=== PATIENT | female | born 1970 | race Caucasian/White ===

== ENCOUNTER → 2016-11-26 | Outpatient (CLI) | payer OTHER ==
[2016-11-26 13:41] LABS: Basophils % (A) 0 %; CH 29.8; CHCM 33.6; Eosinophils # (A) 0.1 k/uL (0-0.7); Eosinophils % (A) 1 %; HCT 39.6 % (34.0-46.0); HDW 2.94; HGB 12.9 gm/dL (11.4-16.0); Luc % (Auto) 1; Lymphocytes # (A) 1.8 k/uL (1.0-4.8); Lymphocytes % (A) 22 %; MCHC 32.6 g/dL (31.0-37.0); MCV 88.9 fL (80.0-100.0); Mean Platelet Volume 7.5; Monocytes # (A) 0.4 k/uL (0-1.0); Monocytes % (A) 5 %; Neutrophils # (A) 5.8 k/uL (1.3-7.7); Neutrophils % (A) 70 %; RBC 4.45 m/uL (3.80-5.40); RDW 13.2 % (11.5-15.5); WBC 8.2 k/uL (3.8-10.6); WBC (Perox) 8.44
[2016-11-29 04:48] LABS: Immunoglobulin G 904 mg/dL (700 - 1600)
[2016-12-04 15:27] LABS: Mis test requested (Blood) PNE23
== END | disposition home or self-care (01) ==
LOC: LABWHC1 12:40
PROVIDERS: ATTEND Allergy & Immunology
DX: J32.9 Chronic sinusitis, unspecified (principal)
CPT/HCPCS: 36415; 82784; 82785; 85025; 86317

== ENCOUNTER → 2017-12-12 | Outpatient (CLI) | payer BC ==
--- NOTE | 2017-12-16 09:45 | MM ---
Reason for exam: screening (asymptomatic). Last mammogram was performed 1 year and 6 months ago. History: Family history of breast cancer in paternal grandmother and breast cancer in paternal aunt. Benign US breast aspiration ea add LT of the left breast, June 13, 2016. Benign US breast aspiration single LT of the left breast, June 13, 2016. Physical Findings: A clinical breast exam by your physician is recommended on an annual basis and results should be correlated with mammographic findings. MG 3D Screening Mammo W/Cad Bilateral CC and MLO view(s) were taken. Prior study comparison: May 30, 2016, bilateral MG 3d screening mammo w/cad. April 23, 2013, bilateral digital screening mammo w/CAD. The breast tissue is extremely dense which could obscure a lesion on mammography. Finding: There is a developing equal, indistinct lobulated mass located 7 cm from the nipple in the left breast. New finding since May 30, 2016 and April 23, 2013. ASSESSMENT: Incomplete: need additional imaging evaluation, BI-RAD 0 RECOMMENDATION: Ultrasound of the left breast. [facility] will attempt to contact patient to return for ultrasound.
== END | disposition home or self-care (01) ==
LOC: RADMAMWWP 15:44
PROVIDERS: ATTEND Pediatrics
DX: Z12.31 Encounter for screening mammogram for malignant neoplasm of breast (principal); R92.8 Other abnormal and inconclusive findings on diagnostic imaging of breast
CPT/HCPCS: 77063; 77067

== ENCOUNTER → 2017-12-13 | Outpatient (CLI) | payer BC ==
[2017-12-13 10:03] LABS: Basophils % (A) 1 %; Eosinophils # (A) 0.4 k/uL (0-0.7); Eosinophils % (A) 6 %; HCT 40.8 % (34.0-46.0); HGB 12.6 gm/dL (11.4-16.0); Lymphocytes % (A) 34 %; MCHC 30.9 g/dL (31.0-37.0); MCV 90.5 fL (80.0-100.0); Mean Platelet Volume 6.5; Monocytes # (A) 0.4 k/uL (0-1.0); Monocytes % (A) 6 %; Neutrophils # (A) 3.1 k/uL (1.3-7.7); Neutrophils % (A) 52 %; Platelet Count 348 k/uL (150-450); RBC 4.51 m/uL (3.80-5.40); RDW 14.2 % (11.5-15.5)
[2017-12-13 10:33] LABS: ALT 23 U/L (9-52); AST 17 U/L (14-36); Albumin 3.9 g/dL (3.5-5.0); Alkaline Phosphatase 77 U/L (38-126); Anion Gap 9 mmol/L; Blood Urea Nitrogen 12 mg/dL (7-17); Calcium 9.5 mg/dL (8.4-10.2); Carbon Dioxide 28 mmol/L (22-30); Chloride 103 mmol/L (98-107); Cholesterol 174 mg/dL (<200); Glucose 99 mg/dL (74-99); HDL Cholesterol 72 mg/dL (40-60); LDL Cholesterol,Calculated 90 mg/dL (0-99); Potassium 4.6 mmol/L (3.5-5.1); Sodium 140 mmol/L (137-145); Total Bilirubin 0.4 mg/dL (0.2-1.3); Total Protein 6.5 g/dL (6.3-8.2); Triglycerides 59 mg/dL (<150)
== END | disposition home or self-care (01) ==
LOC: LABWHC1 09:32
PROVIDERS: ATTEND Pediatrics
DX: Z00.00 Encounter for general adult medical examination without abnormal findings (principal); Z13.220 Encounter for screening for lipoid disorders
CPT/HCPCS: 36415; 80053; 80061; 85025

== ENCOUNTER → 2017-12-30 | Outpatient (CLI) | payer BC ==
--- NOTE | 2017-12-30 10:59 | USB ---
Reason for exam: additional evaluation requested from abnormal screening. History: Family history of breast cancer in paternal grandmother and breast cancer in paternal aunt. Benign US breast aspiration ea add LT of the left breast, June 13, 2016. Benign US breast aspiration single LT of the left breast, June 13, 2016. Physical Findings: Nurse did not find any significant physical abnormalities on exam. US Breast Workup LT Left breast ultrasound includes all four quadrants, the retroareolar region and axilla. Finding demonstrates a 0.6 x 0.4 x 0.6cm lobular, cystic cluster at 2 o'clock stable from 06/08/16, a 0.9 x 0.5 x 0.7cm oval, cystic lesion at 3 o'clock stable from 06/08/16, a 1.5 x 0.7 x 1.2cm oval, cystic lesion at 4 o'clock, a 0.8 x 0.5 x 0.8cm lobular, cystic lesion at 5 o'clock and a 0.4 x 0.3 x 0.4cm oval lesion too small to characterize4 at 3 o'clock. Overall fibrocystic change. These results were verbally communicated with the patient and result sheet given to the patient on 12/30/17. ASSESSMENT: Benign, BI-RAD 2 RECOMMENDATION: Return to routine screening mammogram schedule for both breasts.
== END | disposition home or self-care (01) ==
LOC: RADUSWWP 09:38
PROVIDERS: ATTEND Pediatrics
DX: R92.8 Other abnormal and inconclusive findings on diagnostic imaging of breast (principal)

== ENCOUNTER → 2018-01-27 | Outpatient (CLI) | payer BC ==
[2018-01-27 11:48] LABS: Basophils % (A) 0 %; Eosinophils # (A) 0.2 k/uL (0-0.7); Eosinophils % (A) 3 %; HGB 12.8 gm/dL (11.4-16.0); Lymphocytes # (A) 2.2 k/uL (1.0-4.8); Lymphocytes % (A) 37 %; MCH 28.8 pg (25.0-35.0); MCHC 33.6 g/dL (31.0-37.0); MCV 85.7 fL (80.0-100.0); Mean Platelet Volume 6.4; Monocytes # (A) 0.3 k/uL (0-1.0); Monocytes % (A) 5 %; Neutrophils # (A) 3.1 k/uL (1.3-7.7); Neutrophils % (A) 52 %; Platelet Count 397 k/uL (150-450); RBC 4.43 m/uL (3.80-5.40); RDW 13.5 % (11.5-15.5)
[2018-01-27 16:23] LABS: Immunoglobulin E 10.4 IU/mL (0.00-114.00)
== END | disposition home or self-care (01) ==
LOC: LABWHC1 11:26
PROVIDERS: ATTEND Allergy & Immunology
DX: J32.9 Chronic sinusitis, unspecified (principal)
CPT/HCPCS: 36415; 82784; 82785; 85025

== ENCOUNTER → 2019-10-23 | Outpatient (CLI) | payer BC ==
[2019-10-23 09:07] LABS: Basophils % (A) 0 %; Eosinophils # (A) 0.3 k/uL (0-0.7); Eosinophils % (A) 4 %; HCT 39.6 % (34.0-46.0); HGB 13.2 gm/dL (11.4-16.0); Lymphocytes # (A) 2.4 k/uL (1.0-4.8); Lymphocytes % (A) 41 %; MCH 29.7 pg (25.0-35.0); MCHC 33.2 g/dL (31.0-37.0); MCV 89.5 fL (80.0-100.0); Monocytes # (A) 0.3 k/uL (0-1.0); Monocytes % (A) 6 %; Neutrophils # (A) 2.7 k/uL (1.3-7.7); Neutrophils % (A) 46 %; Platelet Count 349 k/uL (150-450); RBC 4.43 m/uL (3.80-5.40); RDW 13.4 % (11.5-15.5); WBC 5.8 k/uL (3.8-10.6)
[2019-10-23 09:20] LABS: ALT 20 U/L (4-34); AST 27 U/L (14-36); African American GFR (CKD) >90 (>60 ml/min/1.73 sqM); Albumin 4.1 g/dL (3.5-5.0); Alkaline Phosphatase 71 U/L (38-126); Anion Gap 9 mmol/L; Blood Urea Nitrogen 18 mg/dL (7-17); Calcium 9.6 mg/dL (8.4-10.2); Carbon Dioxide 28 mmol/L (22-30); Chloride 103 mmol/L (98-107); Cholesterol 215 mg/dL (<200); Glucose 102 mg/dL (74-99); HDL Cholesterol 86 mg/dL (40-60); LDL Cholesterol,Calculated 116 mg/dL (0-99); Non-African American GFR(CKD) >90 (>60 ml/min/1.73 sqM); Potassium 5.2 mmol/L (3.5-5.1); Sodium 140 mmol/L (137-145); Total Bilirubin 0.4 mg/dL (0.2-1.3); Total Protein 6.9 g/dL (6.3-8.2); Triglycerides 66 mg/dL (<150)
--- NOTE | 2019-10-23 12:59 | MM ---
Reason for exam: screening (asymptomatic). Last mammogram was performed 1 year and 10 months ago. History: Family history of breast cancer in paternal grandmother and breast cancer in paternal aunt. Benign US breast aspiration ea add LT of the left breast, June 13, 2016. Benign US breast aspiration single LT of the left breast, June 13, 2016. Physical Findings: A clinical breast exam by your physician is recommended on an annual basis and results should be correlated with mammographic findings. MG 3D Screening Mammo W/Cad Bilateral CC and MLO view(s) were taken. Prior study comparison: December 12, 2017, bilateral MG 3d screening mammo w/cad. May 30, 2016, bilateral MG 3d screening mammo w/cad. The breast tissue is heterogeneously dense. This may lower the sensitivity of mammography. Finding: There is a 24 mm obscured oval mass in the outer quadrant, middle position of the left breast. 14mm round lesion posterior slight upper MLO 18/61, new from previous. Increase in size since December 12, 2017 and May 30, 2016. ASSESSMENT: Incomplete: need additional imaging evaluation, BI-RAD 0 RECOMMENDATION: Ultrasound of the left breast. [facility] will attempt to contact patient to return for ultrasound.
== END | disposition home or self-care (01) ==
LOC: RADMAMWWP 08:31
PROVIDERS: ATTEND Pediatrics
DX: Z00.01 Encounter for general adult medical examination with abnormal findings (principal); Z12.31 Encounter for screening mammogram for malignant neoplasm of breast
CPT/HCPCS: 36415; 77063; 77067; 80053; 80061; 85025

== ENCOUNTER → 2019-11-13 | Outpatient (CLI) | payer BC, OTHER ==
--- NOTE | 2019-11-13 12:04 | USB ---
Reason for exam: additional evaluation requested from abnormal screening. History: Family history of breast cancer in paternal grandmother and breast cancer in paternal aunt. Benign US breast aspiration ea add LT of the left breast, June 13, 2016. Benign US breast aspiration single LT of the left breast, June 13, 2016. Physical Findings: Nurse Summary: two palpable areas (nurse kp). US Breast Workup LT Left complete breast ultrasound includes all four quadrants, the retroareolar region and axilla. Finding demonstrates a 8 x 5 x 10mm oval, cystic lesion at BB, a 21 x 14 x 22mm oval, cystic lesion at 4 o'clock BB and a 10 x 7 x 12mm oval, cystic lesion at 4 o'clock. Benign. These results were verbally communicated with the patient and result sheet given to the patient on 11/13/19. ASSESSMENT: Benign, BI-RAD 2 RECOMMENDATION: Return to routine screening mammogram schedule for both breasts.
== END | disposition home or self-care (01) ==
LOC: RADUSWWP 09:24
PROVIDERS: ATTEND Pediatrics
DX: R92.8 Other abnormal and inconclusive findings on diagnostic imaging of breast (principal)

== ENCOUNTER → 2020-12-26 | Outpatient (CLI) | payer OTHER ==
--- NOTE | 2020-12-27 11:36 | MM ---
Reason for exam: screening (asymptomatic). Last mammogram was performed 1 year and 2 months ago. History: Family history of breast cancer in paternal grandmother and breast cancer in paternal aunt. Benign US breast aspiration ea add LT of the left breast, June 13, 2016. Benign US breast aspiration single LT of the left breast, June 13, 2016. Took hormonal contraceptives for 5 years. Physical Findings: A clinical breast exam by your physician is recommended on an annual basis and results should be correlated with mammographic findings. MG 3D Screening Mammo W/Cad Bilateral CC and MLO view(s) were taken. Prior study comparison: October 23, 2019, bilateral MG 3d screening mammo w/cad. December 12, 2017, bilateral MG 3d screening mammo w/cad. The breast tissue is heterogeneously dense. This may lower the sensitivity of mammography. Nodular asymmetry posterior central right MLO becomes more defined on 3D. Not clearly identified on CC view. ASSESSMENT: Incomplete: need additional imaging evaluation, BI-RAD 0 RECOMMENDATION: Special view mammogram of the right breast. (3D) If lesion persists on supplemental views, image directed ultrasound is recommended. [facility] will attempt to contact patient to return for supplemental views and ultrasound if indicated.
== END ==
LOC: RADMAMWWP 09:14
PROVIDERS: ATTEND Pediatrics
DX: Z12.31 Encounter for screening mammogram for malignant neoplasm of breast (principal); Z80.3 Family history of malignant neoplasm of breast
CPT/HCPCS: 77063; 77067

== ENCOUNTER → 2021-01-09 | Outpatient (CLI) | payer OTHER ==
--- NOTE | 2021-01-09 14:43 | MM ---
Reason for exam: additional evaluation requested from abnormal screening. Last mammogram was performed less than 1 month ago. History: Family history of breast cancer in paternal grandmother and breast cancer in paternal aunt. Benign US breast aspiration ea add LT of the left breast, June 13, 2016. Benign US breast aspiration single LT of the left breast, June 13, 2016. Took hormonal contraceptives for 5 years. Physical Findings: Nurse did not find any significant physical abnormalities on exam. MG 3D Work Up W/Cad RT Spot compression CC, spot compression MLO, and LM view(s) were taken of the right breast. Prior study comparison: December 26, 2020, bilateral MG 3d screening mammo w/cad. October 23, 2019, bilateral MG 3d screening mammo w/cad. The breast tissue is heterogeneously dense. This may lower the sensitivity of mammography. The posterior central asymmetric density is not well demonstrated on additional views. These results were verbally communicated with the patient and result sheet given to the patient on 01/09/21. ASSESSMENT: Probably benign, BI-RAD 3 RECOMMENDATION: Follow-up diagnostic mammogram of the right breast in 6 months.
== END ==
LOC: RADMAMWWP 13:41
PROVIDERS: ATTEND Pediatrics
DX: R92.8 Other abnormal and inconclusive findings on diagnostic imaging of breast (principal); Z80.3 Family history of malignant neoplasm of breast
CPT/HCPCS: 77061; 77065

== ENCOUNTER → 2022-05-28 | Outpatient (CLI) | payer OTHER ==
--- NOTE | 2022-05-28 10:13 | MM ---
Reason for Exam: Additional evaluation requested from prior study. Last mammogram was performed 1 year(s) and 5 month(s) ago. Patient History: Menarche at age 13. First Full-Term at age 24. Patient used Hormonal Contraceptives for 5 years. 06/13/2016, Benign Cyst Aspiration on the left side. 06/13/2016, Benign Cyst Aspiration on the left side. Paternal grandmother had breast cancer. Paternal aunt had breast cancer. Risk Values: Shahida 5 year model risk: 0.9%. NCI Lifetime model risk: 8.0%. Prior Study Comparison: 04/23/2013 Bilateral Screening Mammogram, [facility]. 05/30/2016 Bilateral Screening Mammogram, [facility]. 12/30/2017 Left Diagnostic Ultrasound, [facility]. 10/23/2019 Bilateral Screening Mammogram, [facility]. 11/13/2019 Left Diagnostic Ultrasound, [facility]. 12/26/2020 Bilateral Screening Mammogram, [facility]. 01/09/2021 Right Diagnostic Mammogram, [facility]. Tissue Density: The breast tissue is heterogeneously dense. This may lower the sensitivity of mammography. Findings: Analyzed By CAD. Chronic nodularity upper-outer quadrant left breast centrally as well as a subtle benign oil cyst calcification centrally in the left breast. No significant change from prior exams. Overall Assessment: Incomplete: need additional imaging evaluation, BI-RAD 0 Management: Diagnostic Breast Ultrasound of the right breast. For axillary pain/tenderness. Electronically signed and approved by: Jannette Hernandez M.D. Radiologist
--- NOTE | 2022-05-28 10:36 | USB ---
Reason for Exam: Clinical finding. Patient History: Menarche at age 13. First Full-Term at age 24. Patient used Hormonal Contraceptives for 5 years. 06/13/2016, Benign Cyst Aspiration on the left side. 06/13/2016, Benign Cyst Aspiration on the left side. Paternal grandmother had breast cancer. Paternal aunt had breast cancer. Risk Values: Shahida 5 year model risk: 0.9%. NCI Lifetime model risk: 8.0%. Technique: Method: Targeted. Prior Study Comparison: 10/23/2019 Bilateral Screening Mammogram, [facility]. 12/26/2020 Bilateral Screening Mammogram, [facility]. 01/09/2021 Right Diagnostic Mammogram, [facility]. Findings: The upper outer quadrant of the right breast and the axilla of the right breast were scanned. Finding 1: Lymph Nodes - Axillary findings. Laterality: Right. Size 7 mm. Region: Axilla. Targeted ultrasound upper outer quadrant right breast 9:00 to 11:00, 8 cm from the nipple and axilla at the site of tenderness. No solid or cystic lesion. A prominent but nonenlarged 7 mm short axis lymph node in the right axilla likely reactive. Overall Assessment: Benign, BI-RAD 2 Management: Screening Mammogram of both breasts in 1 year. 1. Clinical management of patient's right-sided pain/tenderness. 2. Patient should continue monthly self breast exams. A clinical breast exam by your physician is recommended on an annual basis. 3. This exam should not preclude additional follow-up of suspicious palpable abnormalities. Electronically signed and approved by: Jannette Hernandez M.D. Radiologist
== END | disposition home or self-care (01) ==
LOC: RADMAMWWP 09:44
PROVIDERS: ATTEND Pediatrics
DX: R92.8 Other abnormal and inconclusive findings on diagnostic imaging of breast (principal); Z80.3 Family history of malignant neoplasm of breast
CPT/HCPCS: 77062; 77066

== ENCOUNTER → 2023-03-28 | Outpatient (CLI) | payer OTHER ==
--- NOTE | 2023-03-28 13:32 | XR ---
EXAMINATION TYPE: XR chest 2V DATE OF EXAM: 03/28/2023 COMPARISON: NONE TECHNIQUE: PA and lateral views submitted. HISTORY: Cough FINDINGS: The lungs are clear and there is no pneumothorax, pleural effusion, or focal pneumonia. Heart size normal and no overt failure. Osseous structures intact. Surgical clips in the abdomen. IMPRESSION: 1. No acute process.
== END | disposition home or self-care (01) ==
LOC: RADXRMAIN 13:16
PROVIDERS: ATTEND Physician Assistant
DX: R05.9 Cough, unspecified (principal)
CPT/HCPCS: 71046

== ENCOUNTER → 2024-08-14 | Outpatient (CLI) | payer OTHER ==
--- NOTE | 2024-08-14 13:43 | MM ---
Reason for Exam: Screening (asymptomatic). Last mammogram was performed 1 year(s) and 1 month(s) ago. Patient History: Menarche at age 13. First Full-Term at age 24. Postmenopausal. Patient used Hormonal Contraceptives for 5 years. 06/13/2016, Benign Cyst Aspiration on the left side. 06/13/2016, Benign Cyst Aspiration on the left side. Paternal grandmother had breast cancer. Paternal aunt had breast cancer. Risk Values: Shahida 5 year model risk: 0.9%. NCI Lifetime model risk: 7.8%. Prior Study Comparison: 01/09/2021 Right Diagnostic Mammogram, [facility]. 05/28/2022 Bilateral MG 3D diag mammo w/cad [place], [facility]. 07/24/2023 Bilateral MG 3D screening mammo w/cad, [facility]. Tissue Density: The breasts are heterogeneously dense, which may obscure small masses. Findings: Analyzed By CAD. Right breast: There is no suspicious group of microcalcifications or new suspicious mass. Left breast: There is no suspicious group of microcalcifications or new suspicious mass. Overall Assessment: Negative, BI-RAD 1 Management: Screening Mammogram of both breasts in [address] [facility] will attempt to contact patient to return for supplemental views and ultrasound if indicated. Patient should continue monthly self-breast exams. A clinical breast exam by your physician is recommended on an annual basis. This exam should not preclude additional follow-up of suspicious palpable abnormalities. Note on Shahida scores and lifetime risk: 1. A Shahida score greater than 3% is considered moderate risk. If this is the case, consider specialist referral to assess eligibility for a risk reducing agent. 2. If overall lifetime risk for the development of breast cancer is 20% or higher, the patient may qualify for future screening with alternating mammogram and breast MRI. [facility], , 08/14/2024 1:41 PM. Electronically signed and approved by: Ken Kat DO
== END | disposition home or self-care (01) ==
LOC: RADMAMWWP 07:22
PROVIDERS: ATTEND Pediatrics
CPT/HCPCS: 77063; 77067

== ENCOUNTER → 2024-08-14 | Outpatient (CLI) | payer OTHER ==
[2024-08-14 15:26] LABS: Basophils # (A) 0.04 X 10*3/uL (0.00-0.10); Basophils % (A) 0.7 %; Eosinophils # (A) 0.21 X 10*3/uL (0.04-0.35); Eosinophils % (A) 3.6 %; HCT 44.8 % (37.2-46.3); Lymphocytes # (A) 2.01 X 10*3/uL (0.90-5.00); MCHC 33.5 g/dL (32.0-37.0); MCV 89.6 FL (80.0-97.0); Mean Platelet Volume 9.4 FL (9.5-12.2); Monocytes # (A) 0.43 X 10*3/uL (0.20-1.00); Monocytes % (A) 7.3 %; NRBC Per 100 WBC 0 X 10*3/uL (0.00-0.01); Neutrophils # (A) 3.21 X 10*3/uL (1.80-7.70); Neutrophils % (A) 54.2 %; Platelet Count 353 X 10*3/uL (140-440); RDW 12.6 % (11.5-14.5); WBC 5.91 X 10*3/uL (4.50-10.00)
[2024-08-14 15:39] LABS: ALT 14 U/L (8-44); AST 23 U/L (13-35); Albumin 4.6 g/dL (3.8-4.9); Albumin/Globulin Ratio 1.92 Ratio (1.60-3.17); Alkaline Phosphatase 92 U/L (41-126); BUN/Creat Ratio 21.43 Ratio (12.00-20.00); Calcium 9.6 mg/dL (8.7-10.3); Carbon Dioxide 26.2 mmol/L (21.6-31.8); Chloride 103 mmol/L (96-109); Chol/HDL Ratio 3.02 Ratio; Globulin 2.4 g/dL (1.6-3.3); Glucose 103 mg/dL (70-110); LDL Cholesterol,Calculated 127.8 mg/dL (0.0-131.0); Potassium 4.2 mmol/L (3.5-5.5); Sodium 141 mmol/L (135-145); Total Bilirubin 0.5 mg/dL (0.3-1.2); VLDL Calculation 10.62 mg/dL (5.00-40.00)
== END | disposition home or self-care (01) ==
LOC: LABWHC1 08:25
PROVIDERS: ATTEND Pediatrics
CPT/HCPCS: 36415; 80053; 80061; 85025

== ENCOUNTER 2024-10-13 07:00 | Day surgery (SDC) | payer OTHER ==
[2024-10-12 09:25] VITALS: BMI 29.4
[2024-10-13] MEDS ORDERED: LIDOCAINE 1% (10MG/ML) FOR IV START INTRADERMA PRN (07:10)
[2024-10-13] MEDS: IV FLUID CONTINUATION 1,000 ML IV ONE (07:13)
[2024-10-13 07:20] VITALS: RESP 16; TEMP 98.6
[2024-10-13] MEDS: LACTATED RINGERS 1,000 ML IV SCH (07:20)
[2024-10-13] MEDS: ONDANSETRON 4 MG/2 ML VIAL IVP STA (07:23)
[2024-10-13] MEDS ORDERED: PROPOFOL 10 MG/ML 20 ML VIAL IV ONE (08:27)
--- NOTE | 2024-10-13 08:55 | P.PCN ---
Date of Procedure: 10/13/24 Procedure(s) Performed: BRIEF HISTORY: Patient is a 53-year-old pleasant female scheduled for an elective colonoscopy as a part of evaluation of intermittent rectal bleeding for the last 1 year duration. She has this bleeding once a month or so with no significant change in bowel habits.. No family history of colorectal neoplasia PROCEDURE PERFORMED: Colonoscopy. PREOPERATIVE DIAGNOSIS: Intermittent rectal bleeding 1 year duration. IV sedation per Anesthesia. PROCEDURE: After informed consent was obtained, the patient, was brought into the endoscopy unit. IV sedation was administered by Anesthesia under continuous monitoring. Digital rectal examination was normal. Initially the Olympus CF-160 flexible video colonoscope was then inserted in the rectum, gradually advanced into the cecum without any difficulty. Careful examination was performed as the scope was gradually being withdrawn. Ileocecal valve and the appendiceal orifice were visualized and appeared normal. Prep was excellent. Mucosa of the cecum, ascending colon, transverse colon, descending colon, sigmoid colon, and rectum appeared normal. Retroflexion was performed in the rectum and small internal hemorrhoids were seen. The patient tolerated the procedure well. IMPRESSION: Normal-appearing colon from rectum to cecum no evidence of colorectal neoplasia. Small internal hemorrhoids RECOMMENDATIONS: Findings of this examination were discussed with the patient as well as her family. She was advised to be on a high-fiber diet and take fiber supplements on a regular basis and avoid straining and constipation. Repeat screening colonoscopy in 10 years
[2024-10-13 09:16] VITALS: BP 140/93; PULSE 82
== END 2024-10-13 09:44 | disposition home or self-care (01) ==
LOC: ORWHC2ENDO 07:00
PROVIDERS: ATTEND Internal Medicine Gastroenterology
DX: K64.8 Other hemorrhoids (principal); F41.9 Anxiety disorder, unspecified; F32.A Depression, unspecified; K21.9 Gastro-esophageal reflux disease without esophagitis; Z79.899 Other long term (current) drug therapy; Z98.890 Other specified postprocedural states
CPT/HCPCS: 45378; J2405; J2704